=== PATIENT | female | born 1965 | race Caucasian/White ===

== ENCOUNTER → 2018-08-15 15:06 | Outpatient (CLI) | payer OTHER, SELFPAY ==
--- NOTE | 2018-08-15 15:10 | DI.RAD.S_ITS ---
PROCEDURE: XR WRIST RT MIN 3V INDICATIONS: wrist injury TECHNIQUE: 4 views of the wrist were acquired. COMPARISON: None. FINDINGS: Bones: No fractures or dislocations. No suspicious bony lesions. Scaphoid view: Scaphoid is intact. Soft tissues: No suspicious soft tissue calcifications. IMPRESSION: No acute wrist fracture or dislocation. Dictated by: Corey Bray M.D. on 08/15/2018 at 15:46 Approved by: Corey Bray M.D. on 08/15/2018 at 15:46
== END ==
PROVIDERS: Visit Provider Physician Assistant
DX: S69.91XA Unspecified injury of right wrist, hand and finger(s), initial encounter (principal)
CPT/HCPCS: 73110